=== PATIENT | female | born 1950 | race Caucasian/White ===

== ENCOUNTER → 2017-02-25 | Outpatient (CLI) | payer OTHER, MEDICARE | LOC: BRMIMAGING 15:07 | DX: Z12.31 Encounter for screening mammogram for malignant neoplasm of breast (principal) | CPT/HCPCS: G0202 ==

== ENCOUNTER → 2018-02-19 | Outpatient (CLI) | payer OTHER, MEDICARE | LOC: BRMIMAGING 16:16 | PROVIDERS: ATTEND Internal Medicine Rheumatology | DX: M18.0 Bilateral primary osteoarthritis of first carpometacarpal joints (principal); M19.041 Primary osteoarthritis, right hand; M19.042 Primary osteoarthritis, left hand; M85.842 Other specified disorders of bone density and structure, left hand | CPT/HCPCS: 73120-PO ==

== ENCOUNTER → 2018-06-25 | Outpatient (CLI) | payer OTHER, MEDICARE | LOC: FIMAGING 13:19 | PROVIDERS: ATTEND Family Medicine | DX: Z12.31 Encounter for screening mammogram for malignant neoplasm of breast (principal) ==